=== PATIENT | male | born 1965 | race Caucasian/White ===

== ENCOUNTER 2016-12-30 00:57 | Emergency (ER) | payer SELFPAY ==
[~2016-12-30] VITALS: Ht 172.7 cm; Wt 60.0 kg
[2016-12-30] MEDS ORDERED: PROP20TA3 PO (01:13)
[2016-12-30] MEDS ORDERED: BUSP15TA PO (01:13)
[2016-12-30] MEDS ORDERED: SERT-129 PO (01:13)
[2016-12-30] MEDS ORDERED: GABA300C5 PO (01:13)
[2016-12-30 01:14] VITALS: BP 101/56; PULSE 67; RESP 18; TEMP 98.1; O2SAT 96
[2016-12-30] MEDS ORDERED: librium PO (01:24)
[2016-12-30] MEDS ORDERED: VITA100T54 PO (01:24)
[2016-12-30] MEDS ORDERED: IBUP1TAB5 PO (01:24)
[2016-12-30] MEDS ORDERED: SODIUM CHLORIDE 0.9% FLUSH 10 ML FLUSH IV FLUSH PRN (01:45)
[2016-12-30] MEDS ORDERED: ONDANSETRON HCL 4 MG/2 ML VIAL IVP ONE (01:45)
[2016-12-30] MEDS ORDERED: MORPHINE SULFATE 4 MG/ML INJ IV PUSH ONE (01:45)
--- NOTE | 2016-12-30 01:49 | PD ---
HPI Chief Complaint: Abdominal Pain Time Seen by Provider: 01:28 Travel History International Travel<30 days: No Contact w/Intl Traveler<30days: No Traveled to known affect area: No History of Present Illness HPI Patient is a 51-year-old male presents emergency Department with a week's worth of history of left upper quadrant left lower quadrant abdominal pain and cramping. Patient states that ever since he had his colostomy reversed remotely sometime ago he's been having some intermittent abdominal cramping as well as dysuria. 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 States nausea and emesis of food but no blood and no bile no diarrhea. Patient states his symptoms are moderate, left upper quadrant radiating to left lower quadrant context as above. PFSH Past Medical History Depression: Yes Psychiatric: Yes (suicide od attempt in past) Seizures: Yes Tetanus Vaccination: < 5 Years Influenza Vaccination: No Past Surgical History Abdominal Surgery: Yes (abd/bowel surgery ) Neurologic Surgery: Yes (c6 c7 surgery ) Other Surgery: Yes (ostomy reversal 2014/ bladder fused to appendix) Social History Alcohol Use: Yes (last had alcohol a week ago. beer) Tobacco Use: Yes Substance Use: Yes (marijuana ) Allergies-Medications (Allergen,Severity, Reaction): Coded Allergies: No Known Allergies (Verified Allergy, Unknown, 12/30/16) Reported Meds & Prescriptions Reported Meds & Active Scripts Active Reported Ibuprofen 400 Mg Tab 400 Mg PO Q6H PRN [librium] 50 Mg PO TID Vitamin B-1 (Thiamine HCl) 100 Mg Tab 100 Mg PO DAILY Propranolol (Propranolol HCl) 20 Mg Tab 20 Mg PO Q8HR Sertraline (Sertraline HCl) 100 Mg Tab 200 Mg PO DAILY Buspirone (Buspirone HCl) 15 Mg Tab 15 Mg PO TID Gabapentin 300 Mg Cap 300 Mg PO TID Review of Systems Except as stated in HPI: all other systems reviewed are Neg Physical Exam Narrative GENERAL: Well-developed well-nourished but thin in no obvious distress. Sleeping on my first evaluation. SKIN: Focused skin assessment warm/dry. HEAD: Atraumatic. Normocephalic. EYES: Pupils equal and round. No scleral icterus. No injection or drainage. ENT: No nasal bleeding or discharge. Mucous membranes pink and moist. NECK: Trachea midline. No JVD. CARDIOVASCULAR: Regular rate and rhythm. No murmur appreciated. RESPIRATORY: No accessory muscle use. Clear to auscultation. Breath sounds equal bilaterally. GASTROINTESTINAL: Abdomen soft, non-tender, nondistended. Hepatic and splenic margins not palpable. Bowel sounds normal to hyperactive. No rebound no percussive tenderness no CVA tenderness. MUSCULOSKELETAL: No obvious deformities. No clubbing. No cyanosis. No edema. NEUROLOGICAL: Awake and alert. No obvious cranial nerve deficits. Motor grossly within normal limits. Normal speech. PSYCHIATRIC: Appropriate mood and affect; insight and judgment normal. Data Data Last Documented VS Vital Signs Date Time Temp Pulse Resp B/P (MAP) Pulse Ox O2 Delivery O2 Flow Rate FiO2 12/30/16 01:58 99 Room Air 12/30/16 01:14 98.1 67 18 101/56 (71) Orders Orders Complete Blood Count With Diff (12/30/16 01:41) Comprehensive Metabolic Panel (12/30/16 01:41) Lipase (12/30/16 01:41) Urinalysis - C+S If Indicated (12/30/16 01:41) Ct Abd/Pel W Iv Contrast(Rout) (12/30/16 01:41) Iv Access Insert/Monitor (12/30/16 01:41) Ecg Monitoring (12/30/16 01:41) Oximetry (12/30/16 01:41) Morphine Inj (Morphine Inj) (12/30/16 01:45) Ondansetron Inj (Zofran Inj) (12/30/16 01:45) Sodium Chloride 0.9% Flush (Ns Flush) (12/30/16 01:45) Iohexol 350 Inj (Omnipaque 350 Inj) (12/30/16 02:06) Urine Culture (12/30/16 01:55) Ed Discharge Order (12/30/16 02:53) Labs Laboratory Tests Test 12/30/16 01:55 White Blood Count 6.1 TH/MM3 Red Blood Count 4.96 MIL/MM3 Hemoglobin 11.4 GM/DL Hematocrit 36.6 % Mean Corpuscular Volume 73.8 FL Mean Corpuscular Hemoglobin 23.0 PG Mean Corpuscular Hemoglobin Concent 31.2 % Red Cell Distribution Width 18.3 % Platelet Count 170 TH/MM3 Mean Platelet Volume 8.8 FL Neutrophils (%) (Auto) 45.6 % Lymphocytes (%) (Auto) 32.7 % Monocytes (%) (Auto) 18.8 % Eosinophils (%) (Auto) 1.9 % Basophils (%) (Auto) 1.0 % Neutrophils # (Auto) 2.8 TH/MM3 Lymphocytes # (Auto) 2.0 TH/MM3 Monocytes # (Auto) 1.1 TH/MM3 Eosinophils # (Auto) 0.1 TH/MM3 Basophils # (Auto) 0.1 TH/MM3 CBC Comment DIFF FINAL Differential Comment Urine Color YELLOW Urine Turbidity CLEAR Urine pH 6.5 Urine Specific Parkman 1.014 Urine Protein NEG mg/dL Urine Glucose (UA) NEG mg/dL Urine Ketones NEG mg/dL Urine Occult Blood TRACE Urine Nitrite NEG Urine Bilirubin NEG Urine Urobilinogen LESS THAN 2.0 MG/DL Urine Leukocyte Esterase MOD Urine RBC 9 /hpf Urine WBC 27 /hpf Urine Squamous Epithelial Cells <1 /hpf Urine Amorphous Sediment RARE Urine Bacteria RARE /hpf Urine Mucus FEW /lpf Microscopic Urinalysis Comment CULTURE INDICATED Blood Urea Nitrogen 10 MG/DL Creatinine 0.56 MG/DL Random Glucose 75 MG/DL Total Protein 7.2 GM/DL Albumin 3.2 GM/DL Calcium Level 8.7 MG/DL Alkaline Phosphatase 71 U/L Aspartate Amino Transf (AST/SGOT) 20 U/L Alanine Aminotransferase (ALT/SGPT) 21 U/L Total Bilirubin 0.2 MG/DL Sodium Level 137 MEQ/L Potassium Level 4.1 MEQ/L Chloride Level 103 MEQ/L Carbon Dioxide Level 26.7 MEQ/L Anion Gap 7 MEQ/L Estimat Glomerular Filtration Rate 153 ML/MIN Lipase 180 U/L MDM Medical Decision Making Medical Screen Exam Complete: Yes Emergency Medical Condition: Yes Differential Diagnosis Obstruction, acute on chronic abdominal pain, constipation, UTI. Narrative Course Patient roomed in emergency department, patient has mild leukocyte esterase but nitrate negative. Awaiting results of urine culture is patient has no obvious urinary symptoms. Fairly sedate, but abdomen is benign still with his recurrent surgeries CAT scan was indicated shows no acute abnormality. Patient is stable to return to [facility] act. Discussed return to ED criteria and follow-up with his primary care physician's after his therapy is incomplete at [facility]. Diagnosis Primary Impression: Abdominal pain Qualified Codes: R10.84 - Generalized abdominal pain Referrals: [facility] Patient Instructions: Abdominal Pain (ED), General Instructions Disposition: 01 DISCHARGE HOME Condition: Stable Freedom Rizo MD Dec 30, 2016 01:49
[2016-12-30 01:58] VITALS: O2SAT 99
[2016-12-30] MEDS ORDERED: IOHEXOL 350 MG/ML 10 ML VIAL (for RAD DIAG) IVCONTRAST ONE (02:06)
[2016-12-30 02:10] LABS: AUTOMATED NEUTROPHIL # 2.8 TH/MM3 (1.8-7.7); BASOPHIL # 0.1 TH/MM3 (0-0.2); EOSINOPHIL # 0.1 TH/MM3 (0-0.4); EOSINOPHIL % 1.9 % (0.0-4.0); HEMATOCRIT 36.6 % (39.0-51.0); HEMO FLAGS DIFF FINAL; LYMPH % 32.7 % (9.0-44.0); MEAN CELL VOLUME 73.8 FL (80.0-100.0); MEAN CORPUSCULAR HGB CONC 31.2 % (32.0-36.0); MONO % 18.8 % (0.0-8.0); NEUT % 45.6 % (16.0-70.0); PLATELET COUNT 170 TH/MM3 (150-450); RED BLOOD COUNT 4.96 MIL/MM3 (4.50-5.90); RED CELL DISTRIBUTION WIDTH 18.3 % (11.6-17.2); WHITE BLOOD COUNT 6.1 TH/MM3 (4.0-11.0)
[2016-12-30 02:17] LABS: BACTERIA, URINE RARE /hpf; BLOOD, URINE TRACE (NEG); GLUCOSE,URINE NEG (NEG); KETONE, URINE NEG (NEG); MUCUS URINE FEW /lpf (OCC); NITRITE,URINE NEG (NEG); PH, URINE 6.5 (5.0-8.5); SQUAMOUS EPITHELIAL CELL URINE <1 /hpf (0-5); URINE COLOR YELLOW (YELLW/STRAW)
--- NOTE | 2016-12-30 02:17 | RADRPT ---
EXAM DATE/TIME: 12/30/2016 02:04 [facility] COMPARISON: No previous studies available for comparison. INDICATIONS : Abdominal pain. IV CONTRAST: 97 cc Omnipaque 350 (iohexol) IV ORAL CONTRAST: No oral contrast ingested. RADIATION DOSE: 4.54 CTDIvol (mGy) MEDICAL HISTORY : None SURGICAL HISTORY : Colon resection. Colostomy. ENCOUNTER: Initial ACUITY: 1 day PAIN SCALE: 6/10 LOCATION: abdomen TECHNIQUE: Volumetric scanning of the abdomen and pelvis was performed. Using automated exposure control and ad justment of the mA and/or kV according to patient size, radiation dose was kept as low as reasonably achievable to obtain optimal diagnostic quality images. DICOM format image data is available electro nically for review and comparison. FINDINGS: LOWER LUNGS: The visualized lower lungs are clear. LIVER: Homogeneous density without lesion. There is no dilation of the biliary tree. No calcified gallston es. There is mild hepatic steatosis. SPLEEN: Normal size without lesion. PANCREAS: Within normal limits. KIDNEYS: Normal in size and shape. There is no mass, stone or hydronephrosis. ADRENAL GLANDS: Within normal limits. VASCULAR: There is no aortic aneurysm. BOWEL/MESENTERY: No oral contrast was given limiting the sensitivity. There are postoperative changes with anastomotic rommel noted in the pelvis. The stomach, small bowel, and colon demonstrate no acute abnormality. There is no free intraperitoneal air or fluid. ABDOMINAL WALL: Within normal limits. RETROPERITONEUM: There is no lymphadenopathy. BLADDER: There is mild bladder wall thickening with no evidence of mass. REPRODUCTIVE: Within normal limits. INGUINAL: There is no lymphadenopathy or hernia. MUSCULOSKELETAL: Within normal limits for patient age. CONCLUSION: 1. Mild bladder wall thickening which could be due to lack of distention. There is no focal mass. 2. Unremarkable bowel gas pattern. Mauro Valdes MD on December 30, 2016 at 2:13 Board Certified Radiologist. This report was verified electronically.
[2016-12-30 02:18] LABS: COMMENT (UR) CULTURE INDICATED; CULTURE IF INDICATED CULTURE INDICATED
[2016-12-30 02:25] LABS: ANION GAP 7 MEQ/L (5-15); AST (GOT) 20 U/L (15-37); BICARBONATE 26.7 MEQ/L (21.0-32.0); BLOOD UREA NITROGEN 10 MG/DL (7-18); CHLORIDE 103 MEQ/L (98-107); GLOMERULAR FILTRATION RATE 153 ML/MIN (>89); POTASSIUM 4.1 MEQ/L (3.5-5.1); SODIUM (NA) 137 MEQ/L (136-145)
[2016-12-30 02:27] LABS: ALKALINE PHOSPHATASE 71 U/L (45-117); ALT (GPT) 21 U/L (12-78); TOTAL BILIRUBIN ADULT 0.2 MG/DL (0.2-1.0)
[2016-12-31] MEDS ORDERED: CHLO25CA9 PO (10:45)
== END 2016-12-30 03:17 | disposition home or self-care (01) ==
LOC: NEPC 00:57
DX: R10.84 Generalized abdominal pain (principal); R30.0 Dysuria; R11.2 Nausea with vomiting, unspecified; B96.89 Other specified bacterial agents as the cause of diseases classified elsewhere; F32.9 Major depressive disorder, single episode, unspecified; R56.9 Unspecified convulsions; Z72.0 Tobacco use; Z79.899 Other long term (current) drug therapy
CPT/HCPCS: 74177; 80053; 81001; 83690; 85025; 87086; 96374; 96375; 99285; J2270; J2405; Q9967